=== PATIENT | female | born 1995 ===

== ENCOUNTER 2017-12-07 17:56 | Emergency (ER) | payer MEDICAID ==
[2017-12-07 18:17] VITALS: BP 113/64; PULSE 81; RESP 16; TEMP 98.2; O2SAT 99
[2017-12-07 18:18] VITALS: BMI 21.9
--- NOTE | 2017-12-07 19:08 | ED PDOC ---
Lower Extremity Pain/Injury Time Seen by Provider: 12/07/17 18:58 Chief Complaint (Nursing): Lower Extremity Problem/Injury Chief Complaint (Provider): Left Foot Injury History Per: Patient History/Exam Limitations: no limitations Onset/Duration Of Symptoms: Days (x4) Current Symptoms Are (Timing): Still Present Additional Complaint(s): 22 year old female with no significant past medical history presents to the ED with left ankle and foot just s/p fall onset 4 days associated swelling and ecchymosis. She reports pain with weight bearing. Patient denies any other medical complaints or injury. PMD: Dr. Del Cid - Ankle/Foot Description Of Injury: Fell Past Medical History Reviewed: Historical Data, Nursing Documentation, Vital Signs Vital Signs: Last Vital Signs Temp 98.2 F 12/07/17 18:17 Pulse 81 12/07/17 18:17 Resp 16 12/07/17 18:17 BP 113/64 12/07/17 18:17 Pulse Ox 99 12/07/17 18:17 - Medical History PMH: No Chronic Diseases - Surgical History Surgical History: No Surg Hx - Family History Family History: States: Unknown Family Hx - Home Medications Home Medications: Ambulatory Orders Medication Instructions Recorded diaZEpam [Valium] 5 mg PO Q6H PRN #15 tab 04/16/16 Naproxen [Naprosyn] 500 mg PO Q12H #20 tab 12/07/17 - Allergies Allergies/Adverse Reactions: Allergies Allergy/AdvReac Type Severity Reaction Status Date / Time No Known Allergies Allergy Verified 04/16/16 15:42 Review of Systems ROS Statement: Except As Marked, All Systems Reviewed And Found Negative Musculoskeletal: Positive for: Foot Pain (left), Other (left ankle pain ) Physical Exam - Reviewed Nursing Documentation Reviewed: Yes Vital Signs Reviewed: Yes - Physical Exam Appears: Positive for: Non-toxic, No Acute Distress Head Exam: Positive for: ATRAUMATIC, NORMOCEPHALIC Skin: Positive for: Normal Color, Warm, DRY Eye Exam: Positive for: EOMI, Normal appearance, PERRL Extremity: Positive for: Tenderness (to palpation of lateral aspect of left foot ), Swelling (distal fibula and lateral aspect of left foot), Other (left ankle ecchymosis, DP and PT pulses palpable) Neurologic/Psych: Positive for: Alert, Oriented (x3). Negative for: Motor/ Sensory Deficits - ECG O2 Sat by Pulse Oximetry: 99 (RA) Pulse Ox Interpretation: Normal Medical Decision Making Medical Decision Making: Time: 19:02 Initial Plan: --Left ankle XR --Left foot XR Scribe Attestation: Documented by Radha Carrillo, acting as a scribe for Jin Parks MD Provider Scribe Attestation: All medical record entries made by the Scribe were at my direction and personally dictated by me. I have reviewed the chart and agree that the record accurately reflects my personal performance of the history, physical exam, medical decision making, and the department course for this patient. I have also personally directed, reviewed, and agree with the discharge instructions and disposition. Disposition - Clinical Impression Clinical Impression: Ankle sprain - Patient ED Disposition Is Patient to be Admitted: No Counseled Patient/Family Regarding: Studies Performed, Diagnosis, Need For Followup, Rx Given - Disposition Referrals: Podiatry Clinic [Outside] Disposition: Routine/Home Disposition Time: 20:39 Condition: FAIR Prescriptions: Naproxen [Naprosyn] 500 mg PO Q12H #20 tab Instructions: Ankle Sprain Forms: [employer] (Japanese)
--- NOTE | 2017-12-08 09:09 | RAD ---
PROCEDURE: Left Ankle Radiographs. HISTORY: trauma COMPARISON: Comparison made with concurrent radiographs of the left theNone FINDINGS: BONES: Normal. No fracture. JOINTS: Normal. No osteoarthritis. Ankle mortise maintained. Talar dome intact SOFT TISSUES: Mild soft tissue swelling over the lateral malleolus OTHER FINDINGS: None. IMPRESSION: No evidence of acute displaced fracture nor dislocation. Mild lateral soft tissue swelling.
--- NOTE | 2017-12-08 09:28 | RAD ---
PROCEDURE: Left Foot Radiographs. HISTORY: trauma COMPARISON: Comparison made with concurrent radiographs right ankle FINDINGS: BONES: Normal. No fracture. JOINTS: Normal. SOFT TISSUES: Normal. OTHER FINDINGS: None. IMPRESSION: No evidence of acute displaced fracture nor dislocation. If symptoms persist or occult fracture suspected clinically recommend repeat radiographs in 7-10 days as most fractures should become radiographically evident in this timeframe.
== END 2017-12-07 21:10 | disposition home or self-care (01) ==
LOC: H.ER 17:56
DX: S93.402A Sprain of unspecified ligament of left ankle, initial encounter (principal); X50.9XXA Other and unspecified overexertion or strenuous movements or postures, initial encounter; Y92.89 Other specified places as the place of occurrence of the external cause